=== PATIENT | male | born 1975 | race Caucasian/White ===

== ENCOUNTER 2020-06-11 13:41 | Emergency (ER) | payer OTHER ==
[2020-06-11 13:47] VITALS: BP 138/92; PULSE 97; RESP 20; TEMP 97.5
[2020-06-11] MEDS ORDERED: LIDOCAINE 1% INJ 10MG/ML (20 ML MDV) SQ ONE (14:09)
[2020-06-11] MEDS ORDERED: DIPH,PERTUS(ACELL)TETVAC-LF 0.5 ML VIAL IM ONE (14:37)
--- NOTE | 2020-06-11 14:44 | ED ---
Wound/Laceration HPI - General Chief Complaint: Wound/Laceration Stated Complaint: L leg laceration Time Seen by Provider: 06/11/20 13:57 Source: patient Mode of arrival: wheelchair Limitations: no limitations - History of Present Illness Initial Comments: 45-year-old male presents to the emergency department with chief complaint laceration. Patient reports this occurred 1 hour prior to arrival. He was using a chainsaw with a brand-new chain. States it actually slipped and it cut his left knee. Patient reports laceration is superficial. He reports minimal pain with some bleeding which is since resolved. His tetanus is not up-to-date. Denies any numbness or tingling. No blood thinners. - Related Data Allergies Allergy/AdvReac Type Severity Reaction Status Date / Time No Known Allergies Allergy Verified 06/11/20 13:47 Review of Systems ROS Statement: Those systems with pertinent positive or pertinent negative responses have been documented in the HPI. ROS Other: All systems not noted in ROS Statement are negative. Past Medical History Past Medical History: No Reported History History of Any Multi-Drug Resistant Organisms: None Reported Past Surgical History: No Surgical Hx Reported Past Psychological History: No Psychological Hx Reported Smoking Status: Never smoker Past Alcohol Use History: None Reported Past Drug Use History: None Reported General Exam Limitations: no limitations General appearance: alert, in no apparent distress Head exam: Present: atraumatic, normocephalic, normal inspection Eye exam: Present: normal appearance, PERRL, EOMI Pupils: Present: normal accommodation ENT exam: Present: normal exam, normal oropharynx, mucous membranes moist Neck exam: Present: normal inspection, full ROM. Absent: tenderness Respiratory exam: Present: normal lung sounds bilaterally. Absent: respiratory distress Cardiovascular Exam: Present: regular rate, normal rhythm, normal heart sounds GI/Abdominal exam: Present: soft. Absent: distended, tenderness, guarding Extremities exam: Present: full ROM, normal capillary refill, other (Palpable DP and PT bilaterally). Absent: normal inspection (Superficial laceration on the left knee measuring approximately 8 cm), tenderness, pedal edema, joint swelling, calf tenderness Back exam: Present: normal inspection, full ROM. Absent: tenderness Neurological exam: Present: alert, oriented X3, normal gait Psychiatric exam: Present: normal affect, normal mood Skin exam: Present: warm, dry, intact, normal color Course Vital Signs 06/11/20 13:43 Temperature 97.5 F L Pulse Rate 97 Respiratory 20 Rate Blood Pressure 138/92 O2 Sat by Pulse 97 Oximetry Procedures - Laceration Laceration #1 Consent Obtained: verbal consent Indication: laceration Site: lower extremity (Left knee) Size (cm): 8 Description: linear, clean Depth: simple, single layer Sedation/Analgesia: none Anesthetic Used: lidocaine 1% Anesthesia Technique: local infiltration Amount (mls): 5 Pre-repair: irrigated extensively, deep structures intact Type of Sutures: nylon Size of Sutures: 4-0 Number of Sutures: 8 Technique: simple, interrupted Patient Tolerated Procedure: well, no complications Medical Decision Making - Medical Decision Making 45-year-old male presents to the emergency department with chief complaint of laceration. On physical examination, superficial, linear laceration. Minimal blood loss. No signs of foreign bodies. Laceration site was thoroughly irrigated and repaired with 8 sutures. Patient tolerate procedure well. Tetanus was updated. Return parameters were thoroughly discussed the patient was under sitting and agreeable. Case discussed with physician. Disposition Clinical Impression: Laceration Disposition: HOME SELF-CARE Condition: Stable Instructions (If sedation given, give patient instructions): Care For Your Stitches (DC), Laceration (DC) Additional Instructions: Please return to emergency department for suture removal in 10-12 days. Is patient prescribed a controlled substance at d/c from ED?: No Referrals: Julio César Valenzuela MD [Primary Care Provider] - 1-2 days Time of Disposition: 14:43
== END 2020-06-11 14:51 | disposition home or self-care (01) ==
LOC: EC 13:41
DX: S81.012A Laceration without foreign body, left knee, initial encounter (principal); W27.8XXA Contact with other nonpowered hand tool, initial encounter; Z23 Encounter for immunization
CPT/HCPCS: 90715; 99282; 12004; 90471; J2001